=== PATIENT | male | born 1965 | race Caucasian/White ===

== ENCOUNTER → 2017-09-20 | Day surgery (SDC) | payer BC ==
[~2017-09-20] MED LIST: LIDOCAINE 2% 100 MG/5 ML SYRINGE.; PROPOFOL 20 ML IV
[2017-09-20] MEDS: IV RINGERS,LACTATED 1000ML 1,000 ML IV (12:22)
== END | disposition home or self-care (01) ==
LOC: SURG 11:55
DX: K29.50 Unspecified chronic gastritis without bleeding (principal); K21.0 Gastro-esophageal reflux disease with esophagitis; F17.210 Nicotine dependence, cigarettes, uncomplicated; Z87.39 Personal history of other diseases of the musculoskeletal system and connective tissue; Z98.890 Other specified postprocedural states
CPT/HCPCS: 43239; 88305; J2704

== ENCOUNTER → 2018-09-16 | Outpatient (CLI) | payer BC ==
[2017-09-20 13:38] VITALS: BP 112/63
[~2018-09-16] MED LIST changes: +FAMO40TA4 PO; -LIDOCAINE 2% 100 MG/5 ML SYRINGE.; -PROPOFOL 20 ML IV
--- NOTE | 2018-09-16 09:59 | KCIC ---
MR of the left shoulder HISTORY: Left shoulder osteoarthritis, chronic shoulder pain. TECHNIQUE: Routine multiplanar sequences are obtained. FINDINGS: The acromioclavicular joint is degenerative, small undersurface osteophytes. Partial-thickness deep undersurface tear of the supraspinatus tendon, 90% deep and measuring approximately 2.5 cm AP diameter. There is a very small full-thickness component of this tear anteriorly, on a single coronal image, series 6, image 10. Undersurface fibers of this tear are retracted 2 cm. Subjacent cystic degeneration at the anterior greater tuberosity. Generalized rotator cuff tendinosis. Mild partial tear of the upper subscapularis tendon. Trace subdeltoid bursal effusion. No significant glenohumeral joint effusion. No acute articular cartilage defect. Heterogeneous signal within the posterosuperior labrum compatible with degeneration versus degenerative tear. Biceps tendon is intact. No aggressive bone destruction or acute fracture. IMPRESSION: 1. Moderate size 90% deep undersurface tear of the supraspinatus tendon with 2 cm retraction of undersurface fibers. Very small full-thickness component anteriorly which extends through the bursal layer seen on a single coronal slice. 2. Degeneration or degenerative tear of the posterosuperior labrum. Electronically signed by: Robert Cho MD (09/16/2018 9:57 AM) [id number]
== END | disposition home or self-care (01) ==
LOC: KCIC MRI 07:52
PROVIDERS: ATTEND Nurse Practitioner Family
DX: S43.492A Other sprain of left shoulder joint, initial encounter (principal); M19.012 Primary osteoarthritis, left shoulder; M75.102 Unspecified rotator cuff tear or rupture of left shoulder, not specified as traumatic; M25.712 Osteophyte, left shoulder; X58.XXXA Exposure to other specified factors, initial encounter; Y93.89 Activity, other specified; Y92.89 Other specified places as the place of occurrence of the external cause; Y99.8 Other external cause status
CPT/HCPCS: 73221

== ENCOUNTER → 2018-09-26 | Outpatient (CLI) | payer BC ==
[2017-09-20 13:38] VITALS: BP 112/63
--- NOTE | 2018-09-26 10:14 | KCIC ---
MR of the right shoulder HISTORY: Right shoulder pain, chronic. TECHNIQUE: Routine multiplanar sequences are obtained. FINDINGS: The acromioclavicular joint is mildly degenerative. Broad deep undersurface tearing of the supraspinatus tendon, less so at the infraspinatus tendon. Full-thickness tear of the anterior supraspinatus tendon measures 15 mm diameter. Retraction measures about 1 cm. Partial subscapularis tendon tear. Trace subdeltoid bursal effusion. No significant glenohumeral joint effusion. No evidence of labral tear or para labral cyst. The biceps tendon is grossly intact. No aggressive bone destruction or acute fracture. There is mild motion degradation on exam. IMPRESSION: Deep undersurface tear of the supraspinatus tendon, with a small full-thickness component anteriorly. Partial subscapularis and infraspinatus tendon tear. Electronically signed by: Robert Cho MD (09/26/2018 10:11 AM) [id number]
== END | disposition home or self-care (01) ==
LOC: KCIC MRI 08:08
PROVIDERS: ATTEND Nurse Practitioner Family
DX: M75.101 Unspecified rotator cuff tear or rupture of right shoulder, not specified as traumatic (principal)
CPT/HCPCS: 73221